=== PATIENT | female | born 1960 | race Two or more races ===

== ENCOUNTER 2017-08-01 09:25 | Emergency (ER) | payer OTHER ==
[~2017-08-01] VITALS: Ht 157.5 cm; Wt 77.1 kg
[2017-08-01] MEDS ORDERED: NKM (09:40)
--- NOTE | 2017-08-01 10:50 | Emergency Room Report ---
History of Present Illness General Chief Complaint: Pain Source: Patient Present Illness HPI This patient states she has pain on the ball of her left foot. She admits that she had been doing a significant amount walking and going up and down stairs over the weekend. She states that she was helping a friend move. She was wearing tennis shoes. She denies injury. She denies fever or chills. She states the pain is with pressure. She has no other complaints. Allergies: Coded Allergies: No Known Allergies (Unverified , 08/01/17) Patient History Past Medical History: see triage record, other - Hx breast ca r. breast. Social History: Denies: smoking, alcohol use, drug use Reviewed Nursing Documentation: PMH: Agreed, PSxH: Agreed Nursing Documentation-PMH Hx Cancer: Yes - "Pre cancer", right breast. Review of Systems All Other Systems: negative except mentioned in HPI Physical Exam Vital Signs Date Time Temp Pulse Resp B/P (MAP) Pulse Ox O2 Delivery O2 Flow Rate FiO2 08/01/17 09:36 97.9 78 16 138/77 98 Room Air Sp02 EP Interpretation: reviewed, normal General Appearance: no apparent distress, alert, GCS 15, non-toxic Head: normocephalic, atraumatic Eyes: bilateral eye normal inspection, bilateral eye PERRL ENT: hearing grossly normal, normal pharynx, no angioedema, normal voice Neck: normal inspection Respiratory: no respiratory distress, no retraction, no accessory muscle use, speaking full sentences Rectal: deferred Musculoskeletal: back normal, normal range of motion, other - 1cm diameter vesicular lesion on the bottom of the ball of the L. foot c/w blister. Neurologic: alert, oriented x3, responsive, motor strength/tone normal, sensory intact, speech normal Psychiatric: judgement/insight normal, memory normal, mood/affect normal, no suicidal/homicidal ideation Skin: normal color, warm/dry, well hydrated, other - See MSK exam Medical Decision Making Diagnostic Impression: Primary Impression: Blister of foot without infection ER Course The patient has a blister on the bottom of her left foot. Likely this is secondary to the walking she did this weekend. The patient was given a cane for relief. She is also given ibuprofen. There is no evidence of infection. 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 At this time, I did not identify an emergency medical condition. The patient's given return precautions and followup instructions. Last Vital Signs Date Time Temp Pulse Resp B/P (MAP) Pulse Ox O2 Delivery O2 Flow Rate FiO2 08/01/17 09:36 97.9 78 16 138/77 98 Room Air Disposition: HOME, SELF-CARE Condition: Improved Referrals: [facility],REFERRING (PCP) EMMETT CHOI D.O. Aug 01, 2017 10:50
[2017-08-01] MEDS ORDERED: IBUPROFEN600 MG ORAL (11:21)
[2017-08-01 11:29] VITALS: BP 138/77
[2017-08-01 11:30] VITALS: BP 138/77
== END 2017-08-01 11:32 | disposition home or self-care (01) ==
LOC: EMR 09:50
DX: S90.822A Blister (nonthermal), left foot, initial encounter (principal); Z85.3 Personal history of malignant neoplasm of breast
CPT/HCPCS: 99282

== ENCOUNTER 2018-11-19 10:37 | Emergency (ER) | payer OTHER ==
[~2018-11-19] VITALS: Ht 157.5 cm; Wt 79.4 kg
[~2018-11-19 10:37] MED LIST: IBUPROFEN600 MG ORAL; NKM
[2018-11-19 10:53] VITALS: BP 126/67
--- NOTE | 2018-11-19 10:53 | NUR ---
ED Nurse Note: pt walked in due to sore throat, coughing ans watery eyes x 1 week. pt stated 8/10 pain on throat when coughing. pt is not in acute distress. pt noted to ahve clear lung sound, pt coughs intermittently, non productive. seen by ermd. will continue to monitor
--- NOTE | 2018-11-19 11:09 | Emergency Room Report ---
History of Present Illness General Chief Complaint: Sore Throat Source: Patient Present Illness HPI Patient has been ill since Monday. She's had a cough that's keeping her awake at night. She's not wheezing. She has a sore throat. There's been no nausea vomiting diarrhea dysuria. She feels muscle aches. She's been taking NyQuil and DayQuil with little relief. She denies a history of asthma. She also denies diabetes hypertension. In the days preceding her illness someone was sitting behind her who had an upper respiratory infection. She has missed several days of work. 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 Review of Systems All Other Systems: negative except mentioned in HPI Physical Exam Vital Signs Date Time Temp Pulse Resp B/P (MAP) Pulse Ox O2 Delivery O2 Flow Rate FiO2 11/19/18 10:46 98.8 89 20 126/67 (86) 94 Room Air Sp02 EP Interpretation: reviewed, normal General Appearance: well appearing, no apparent distress Head: normocephalic, atraumatic Eyes: bilateral eye normal inspection, bilateral eye PERRL ENT: hearing grossly normal, normal voice, TMs + canals normal, pharyngeal erythema Neck: full range of motion, supple Respiratory: chest non-tender, lungs clear, normal breath sounds, no respiratory distress, speaking full sentences Cardiovascular #1: normal peripheral pulses Cardiovascular #2: 2+ radial (R) Gastrointestinal: normal inspection Musculoskeletal: digits/nails normal, gait/station normal, normal range of motion Neurologic: alert, oriented x3, normal gait, grossly normal Psychiatric: mood/affect normal Skin: no rash Medical Decision Making Diagnostic Impression: Primary Impression: Pharyngitis Qualified Codes: J02.9 - Acute pharyngitis, unspecified Additional Impression: Cough ER Course Patient presents with several days of upper respiratory symptoms with cough and sore throat. Differential includes strep, bronchitis, viral amongst others. Antibiotics and antitussives are indicated. Patient is not toxic and there is no bronchospasm. Patient begun on antibiotics. Patient is stable for outpatient observation and treatment. Last Vital Signs Date Time Temp Pulse Resp B/P (MAP) Pulse Ox O2 Delivery O2 Flow Rate FiO2 11/19/18 11:17 98.8 89 20 126/67 94 Room Air Status: improved Disposition: HOME, SELF-CARE Condition: Improved Scripts Guaifenesin/Codeine Phos* (ROBITUSSIN AC*) 118 Ml Liquid 5 ML ORAL Q6H PRN for For Cough, #60 ML 0 Refills Prov: Ponce Gonzalez MD 11/19/18 Amoxicillin* (AMOXIL*) 500 Mg Capsule 500 MG ORAL THREE TIMES A DAY, #21 CAP Prov: Ponce Gonzalez MD 11/19/18 Ponce Gonzalez MD November 19, 2018 11:09
[2018-11-19] MEDS ORDERED: GUAIFENESIN-CO118 M1 ORAL (11:12)
[2018-11-19] MEDS ORDERED: AMOXICILLIN500 MG ORAL (11:12)
[2018-11-19 11:17] VITALS: BP 126/67
--- NOTE | 2018-11-19 11:17 | NUR ---
ER DISCHARGE NOTE: Patient is cleared to be discharged per ERMD, pt is aox4, on room air, with stable vital signs. pt was given dc and prescription instructions, pt was able to verbalize understanding, pt id band removed without complications. pt is able to ambulate with steady gait. pt took all belongings.
== END 2018-11-19 11:17 | disposition home or self-care (01) ==
LOC: EMR 11:10
DX: J02.9 Acute pharyngitis, unspecified (principal); R05 Cough
CPT/HCPCS: 99282